=== PATIENT | male | born 1965 | race Caucasian/White ===

== ENCOUNTER 2020-02-28 10:03 | Inpatient (IN) | payer MEDICAID ==
[2020-02-28] MEDS ORDERED: LORazepam 2 MG/ML SDV IVPUSH ONE (10:08)
[2020-02-28] MEDS ORDERED: Ondansetron 4 MG/2 ML SDV IVPUSH ONE (10:08)
[2020-02-28] MEDS ORDERED: Sodium Chloride 0.9% 2.5 ML Syringe FLUSH PRN (10:08)
[2020-02-28] MEDS ORDERED: Lactated Ringers 1,000 ML IV ONE (10:08)
[2020-02-28] MEDS ORDERED: Sodium Chloride 0.9% 10 ML Syringe FLUSH PRN (10:08)
--- NOTE | 2020-02-28 10:08 | EDM.PDOC ---
ED HPI GENERAL MEDICAL PROBLEM - General Stated Complaint: VOMITING/DETOX Time Seen by Provider: 02/28/20 10:05 Source of Information: Reports: EMS History Limitations: Reports: Altered Mental Status - History of Present Illness INITIAL COMMENTS - FREE TEXT/NARRATIVE: 55-year-old male was brought in by ambulance for nausea and vomiting last night. He drinks alcohol regularly and his last alcohol consumption was 5 days ago. He notes he is seeing spots. He denies auditory hallucination, chest pain, shortness of breath, headache, abdominal pain, back pain. ROS: A 10-point review of systems, other than pertinent positives and negatives as stated per HPI, is otherwise negative PHYSICAL EXAM General: AOx4, GCS = 15, No distress, agitated, tremulous HEENT: dry mucous membrane Skin: clammy Neck: supple, no meningismus, no Kernig or Brudzinski Cardiac: S1S2 tachycardia Respiratory: CTAB, no crackles or rales, no wheezing Abdomen: Soft, nontender, no rebound or guarding, nondistended, no pulsatile mass. Back: nontender Musculoskeletal: NVI distally, no deformity Neuro: tremulous - Related Data Allergies Allergy/AdvReac Type Severity Reaction Status Date / Time Unable to Assess Allergy Unverified 02/28/20 10:08 Home Meds: Home Meds . [Unable to Verify Home Med List] 02/28/20 [History] ED ROS GENERAL - Review of Systems Review Of Systems: Comprehensive ROS is negative, except as noted in HPI. ED EXAM, GENERAL - Physical Exam Exam: See Below (see dictation) EKG INTERPRETATION EKG Interpretation Comments: 105 Bpm, sinus tach, normal QRS interval, no STEMI. EKG and rhythm strip interpreted by me at 1018 Course - Vital Signs Last Recorded V/S: Last Vital Signs Temp 96.1 F L 02/28/20 10:08 Pulse 100 02/28/20 11:45 Resp 17 02/28/20 11:45 BP 103/67 02/28/20 11:45 Pulse Ox 98 02/28/20 11:45 - Orders/Labs/Meds Orders: Active Orders 24 hr Category Date Time Status EKG Documentation Completion [RC] STAT Care 02/28/20 10:09 Active CULTURE BLOOD [BC] Stat Lab 02/28/20 10:33 Received CULTURE BLOOD [BC] Stat Lab 02/28/20 11:14 Received DRUG SCREEN, URINE [URCHEM] Stat Lab 02/28/20 10:08 Ordered Sodium Chloride 0.9% [Saline Flush] Med 02/28/20 10:08 Active 10 ml FLUSH ASDIRECTED PRN Sodium Chloride 0.9% [Saline Flush] Med 02/28/20 10:08 Active 2.5 ml FLUSH ASDIRECTED PRN Blood Culture x2 Reflex Set [OM.PC] Stat Oth 02/28/20 10:28 Ordered Saline Lock Insert [OM.PC] Stat Oth 02/28/20 10:08 Ordered Medication Orders Sodium Chloride (Saline Flush) 10 ml FLUSH ASDIRECTED PRN PRN Reason: Keep Vein Open Last Admin: 02/28/20 10:19 Dose: 10 ml Documented by: MICHELLE Sodium Chloride (Saline Flush) 2.5 ml FLUSH ASDIRECTED PRN PRN Reason: Keep Vein Open Last Admin: 02/28/20 10:19 Dose: 2.5 ml Documented by: MICHELLE Labs: Laboratory Tests 02/28/20 02/28/20 02/28/20 Range/Units 10:10 10:10 10:10 WBC 14.00 H (4.0-11.0) K/uL RBC 4.60 (4.50-5.90) M/uL Hgb 14.8 (13.0-17.0) g/dL Hct 41.1 (38.0-50.0) % MCV 89.3 (80.0-98.0) fL MCH 32.2 H (27.0-32.0) pg MCHC 36.0 (31.0-37.0) g/dL RDW Std Deviation 45.5 (28.0-62.0) fl RDW Coeff of Ambrosio 14 (11.0-15.0) % Plt Count 162 (150-400) K/uL MPV 8.80 (7.40-12.00) fL Neut % (Auto) 88.8 H (48.0-80.0) % Lymph % (Auto) 3.6 L (16.0-40.0) % Ashe % (Auto) 7.6 (0.0-15.0) % Eos % (Auto) 0.0 (0.0-7.0) % Baso % (Auto) 0.0 (0.0-1.5) % Neut # (Auto) 12.4 H (1.4-5.7) K/uL Lymph # (Auto) 0.5 L (0.6-2.4) K/uL Ashe # (Auto) 1.1 H (0.0-0.8) K/uL Eos # (Auto) 0.0 (0.0-0.7) K/uL Baso # (Auto) 0.0 (0.0-0.1) K/uL Nucleated RBC % 0.0 /100WBC Nucleated RBCs # 0 K/uL Lactate 2.2 H* (0.20-2.00) mmol/L Sodium 123 L (136-148) mmol/L Potassium 3.2 L (3.5-5.1) mmol/L Chloride 81 L (98-107) mmol/L Carbon Dioxide 25.1 (21.0-32.0) mmol/L BUN 7 (7.0-18.0) mg/dL Creatinine 1.0 (0.8-1.3) mg/dL Est Cr Clr Drug Dosing 79.80 mL/min Estimated GFR (MDRD) > 60.0 ml/min Glucose 151 H (74-106) mg/dL Calcium 8.8 (8.5-10.1) mg/dL Phosphorus 3.1 (2.6-4.7) mg/dL Magnesium 1.8 (1.8-2.4) mg/dL Total Bilirubin 2.3 H (0.2-1.0) mg/dL AST 119 H (15-37) IU/L ALT 162 H (14-63) IU/L Alkaline Phosphatase 145 H (46-116) U/L Creatine Kinase 205 (26-308) U/L Troponin I < 0.050 (0.000-0.056) ng/mL Total Protein 7.8 (6.4-8.2) g/dL Albumin 4.1 (3.4-5.0) g/dL Globulin 3.7 (2.6-4.0) g/dL Albumin/Globulin Ratio 1.1 (0.9-1.6) Ethyl Alcohol < 3.0 mg/dL COVID-19 (MAGALIE) (NEGATIVE) 02/28/20 Range/Units 10:30 WBC (4.0-11.0) K/uL RBC (4.50-5.90) M/uL Hgb (13.0-17.0) g/dL Hct (38.0-50.0) % MCV (80.0-98.0) fL MCH (27.0-32.0) pg MCHC (31.0-37.0) g/dL RDW Std Deviation (28.0-62.0) fl RDW Coeff of Ambrosio (11.0-15.0) % Plt Count (150-400) K/uL MPV (7.40-12.00) fL Neut % (Auto) (48.0-80.0) % Lymph % (Auto) (16.0-40.0) % Ashe % (Auto) (0.0-15.0) % Eos % (Auto) (0.0-7.0) % Baso % (Auto) (0.0-1.5) % Neut # (Auto) (1.4-5.7) K/uL Lymph # (Auto) (0.6-2.4) K/uL Ashe # (Auto) (0.0-0.8) K/uL Eos # (Auto) (0.0-0.7) K/uL Baso # (Auto) (0.0-0.1) K/uL Nucleated RBC % /100WBC Nucleated RBCs # K/uL Lactate (0.20-2.00) mmol/L Sodium (136-148) mmol/L Potassium (3.5-5.1) mmol/L Chloride (98-107) mmol/L Carbon Dioxide (21.0-32.0) mmol/L BUN (7.0-18.0) mg/dL Creatinine (0.8-1.3) mg/dL Est Cr Clr Drug Dosing mL/min Estimated GFR (MDRD) ml/min Glucose (74-106) mg/dL Calcium (8.5-10.1) mg/dL Phosphorus (2.6-4.7) mg/dL Magnesium (1.8-2.4) mg/dL Total Bilirubin (0.2-1.0) mg/dL AST (15-37) IU/L ALT (14-63) IU/L Alkaline Phosphatase (46-116) U/L Creatine Kinase (26-308) U/L Troponin I (0.000-0.056) ng/mL Total Protein (6.4-8.2) g/dL Albumin (3.4-5.0) g/dL Globulin (2.6-4.0) g/dL Albumin/Globulin Ratio (0.9-1.6) Ethyl Alcohol mg/dL COVID-19 (MAGALIE) NEGATIVE (NEGATIVE) Meds: Medications Generic Name Dose Route Start Last Admin Trade Name Will PRN Reason Stop Dose Admin Sodium Chloride 10 ml 02/28/20 10:08 02/28/20 10:19 Saline Flush FLUSH 10 ml ASDIRECTED PRN Administration Keep Vein Open Sodium Chloride 2.5 ml 02/28/20 10:08 02/28/20 10:19 Saline Flush FLUSH 2.5 ml ASDIRECTED PRN Administration Keep Vein Open Discontinued Medications Generic Name Dose Route Start Last Admin Trade Name Willianq PRN Reason Stop Dose Admin Lactated Ringer's 1,000 mls @ 999 mls/hr 02/28/20 10:08 02/28/20 10:17 Ringers, Lactated IV 02/28/20 11:08 999 mls/hr .BOLUS ONE Administration Multivitamins/Minerals 10 ml/ 1,011.2 mls @ 999 mls/hr 02/28/20 10:10 02/28/20 10:36 Thiamine HCl 100 mg/ Folic IV 02/28/20 11:10 999 mls/hr Acid 1 mg/ Sodium Chloride ONETIME ONE Administration Lorazepam 2 mg 02/28/20 10:08 02/28/20 10:18 Ativan IVPUSH 02/28/20 10:09 2 mg ONETIME ONE Administration Ondansetron HCl 4 mg 02/28/20 10:08 02/28/20 10:20 Zofran IVPUSH 02/28/20 10:09 4 mg ONETIME ONE Administration - Re-Assessments/Exams Free Text/Narrative Re-Assessment/Exam: 02/28/20 11:[address] Hood, who agrees to admit. The hospitalist's documentation supersedes all other documentation on this patient with regard to any conflicts or discrepancies from this point forward. Any emergency conditions have been treated to the ability of the ED prior to admission. Departure - Departure Time of Disposition: 11:47 Disposition: Admitted As Inpatient 65 Condition: Good Clinical Impression: Alcohol withdrawal delirium, Hyponatremia - Discharge Information *PRESCRIPTION DRUG MONITORING PROGRAM REVIEWED*: Not Applicable *COPY OF PRESCRIPTION DRUG MONITORING REPORT IN PATIENT JHONNY: Not Applicable Critical Care Note - Critical Care Note Total Time (mins): 40 Comments: Critical Care: The high probability of sudden, clinically significant deterioration in the patient's condition required the highest level of my preparedness to intervene urgently. The services I provided to this patient were to treat and/or prevent clinically significant deterioration. Services included the following: chart data review, reviewing nursing notes and/or old charts, documentation time, sales consultant residential manager collaboration regarding findings and treatment options, medication orders and management, direct patient care, vital sign assessments and ordering, interpreting and reviewing diagnostic studies/lab tests. Aggregate critical care time includes only time during which I was engaged in work directly related to the patient's care, as described above, whether at the bedside or elsewhere in the Emergency Department. It did not include time spent performing other reported procedures or the services of residents, students, nurses or physician assistants. Frequent interventions and/or frequent repeat evaluations were required as well as counseling and coordination of care regarding prognosis, treatments, and discussions with patient, staff and consultants. Critical Care (excluding other procedures): 40 minutes Sepsis Event Note (ED) - Focused Exam Vital Signs: Vital Signs Temp Pulse Resp BP Pulse Ox 02/28/20 11:45 100 17 103/67 98 02/28/20 10:08 96.1 F L 101 H 17 98 - My Orders Last 24 Hours: My Active Orders 02/28/20 10:08 DRUG SCREEN, URINE [URCHEM] Stat Sodium Chloride 0.9% [Saline Flush] 10 ml FLUSH ASDIRECTED PRN Sodium Chloride 0.9% [Saline Flush] 2.5 ml FLUSH ASDIRECTED PRN Saline Lock Insert [OM.PC] Stat 02/28/20 10:09 EKG Documentation Completion [RC] STAT 02/28/20 10:28 Blood Culture x2 Reflex Set [OM.PC] Stat 02/28/20 10:33 CULTURE BLOOD [BC] Stat 02/28/20 11:14 CULTURE BLOOD [BC] Stat - Assessment/Plan Last 24 Hours: My Active Orders 02/28/20 10:08 DRUG SCREEN, URINE [URCHEM] Stat Sodium Chloride 0.9% [Saline Flush] 10 ml FLUSH ASDIRECTED PRN Sodium Chloride 0.9% [Saline Flush] 2.5 ml FLUSH ASDIRECTED PRN Saline Lock Insert [OM.PC] Stat 02/28/20 10:09 EKG Documentation Completion [RC] STAT 02/28/20 10:28 Blood Culture x2 Reflex Set [OM.PC] Stat 02/28/20 10:33 CULTURE BLOOD [BC] Stat 02/28/20 11:14 CULTURE BLOOD [BC] Stat
[2020-02-28] MEDS ORDERED: MVI, Adult with Vitamin K 10 ML, Thiamine 100 MG, Folic Acid 1 MG in Sodium Chloride 0.... IV ONE ×4 (10:10)
[2020-02-28 10:46] LABS: BLOOD UREA NITROGEN,BUN 7 mg/dL (7.0-18.0); CARBON DIOXIDE,CO2 25.1 mmol/L (21.0-32.0); CHLORIDE,CL 81 mmol/L (98-107); GLUCOSE RANDOM 151 mg/dL (74-106); POTASSIUM,K 3.2 mmol/L (3.5-5.1); SODIUM,NA 123 mmol/L (136-148)
[2020-02-28] MEDS ORDERED: Ondansetron 4 MG/2 ML SDV IVPUSH PRN ×2 (14:22→14:35)
[2020-02-28] MEDS ORDERED: LORazepam 2 MG/ML SDV IVPUSH PRN (14:22)
[2020-02-28] MEDS ORDERED: Sodium Chloride 0.9% 1,000 ML IV SCH (14:24)
--- NOTE | 2020-02-28 14:27 | CR ---
Chest: Portable view of the chest was obtained. Comparison: No prior chest imaging is available. Heart size and mediastinum are normal. Lungs are clear with no acute parenchymal change. Bony structures are grossly intact. Impression: 1. Nothing acute seen on portable chest x-ray. Diagnostic code #1 This report was dictated in MDT
[2020-02-28] MEDS ORDERED: Potassium Chloride 20 MEQ Tab.ER PO ONE (14:32)
--- NOTE | 2020-02-28 14:41 | PCM.HP.2 ---
H&P History of Present Illness - General Date of Service: 02/28/20 Admit Problem/Dx: Admission Diagnosis/Problem Admission Diagnosis/Problem Alcohol withdrawal delirium - History of Present Illness Initial Comments - Free Text/Narative: 55 yo male with pmh of alcohol abuse who presents with one day history of nausea and vomiting. PAtient reports he has not been able to keep anything down. He reports drinking two 40s a day. Last drink was five days ago. In the ED he was noted to confused and tremulous. He was given ativan with improvement in his symptoms. Patient denies any fevers, chills, cough, shortness of breath, diarrhea, or abdominal pain. - Related Data Allergies/Adverse Reactions: Allergies Allergy/AdvReac Type Severity Reaction Status Date / Time Unable to Assess Allergy Unverified 02/28/20 10:08 Home Medications: Home Meds . [Unable to Verify Home Med List] 02/28/20 [History] Past Medical History HEENT History: Reports: Other (See Below) Other HEENT History: unable to assess Cardiovascular History: Reports: Other (See Below) Other Cardiovascular History: unable to assess Respiratory History: Reports: Other (See Below) Other Respiratory History: unable to assess Gastrointestinal History: Reports: Other (See Below) Other Gastrointestinal History: unable to assess Genitourinary History: Reports: Other (See Below) Other Genitourinary History: unable to assess Musculoskeletal History: Reports: Other (See Below) Other Musculoskeletal History: unable to assess Neurological History: Reports: Other (See Below) Other Neuro History: unable to assess Psychiatric History: Reports: Other (See Below) Other Psychiatric History: unable to assess Endocrine/Metabolic History: Reports: Other (See Below) Other Endocrine/Metabolic History: unable to assess Hematologic History: Reports: Other (See Below) Other Hematologic History: unable to assess Immunologic History: Reports: Other (See Below) Other Immunologic History: unable to assess Oncologic (Cancer) History: Reports: Other (See Below) Other Oncologic History: unable to assess Dermatologic History: Reports: Other (See Below) Other Dermatologic History: unable to assess - Infectious Disease History Infectious Disease History: Reports: Other (See Below) Other Infectious Disease History: unable to assess - Past Surgical History Head Surgeries/Procedures: Reports: Other (See Below) HEENT Surgical History: Reports: Other (See Below) Other HEENT Surgeries/Procedures: unable to assess Cardiovascular Surgical History: Reports: Other (See Below) Other Cardiovascular Surgeries/Procedures: unable to assess Respiratory Surgical History: Reports: Other (See Below) Other Respiratory Surgeries/Procedures: unable to assess GI Surgical History: Reports: Other (See Below) Other GI Surgeries/Procedures: unable to assess Male Surgical History: Reports: Other (See Below) Other Male Surgeries/Procedures: unable to assess Endocrine Surgical History: Reports: Other (See Below) Other Endocrine Surgeries/Procedures: unable to assess Neurological Surgical History: Reports: Other (See Below) Other Neurological Surgeries/Procedures: unable to assess Musculoskeletal Surgical History: Reports: Other (See Below) Other Musculoskeletal Surgeries/Procedures:: unable to assess Oncologic Surgical History: Reports: Other (See Below) Other Oncologic Surgeries/Procedures: unable to assess Dermatological Surgical History: Reports: Other (See Below) Social & Family History - Family History Family Medical History: Unobtainable - Tobacco Use Smoking Status *Q: Unknown Ever Smoked - Caffeine Use Caffeine Use Comment: unable to assess H&P Review of Systems - Review of Systems: Review Of Systems: Comprehensive ROS is negative, except as noted in HPI. Exam - Exam Exam: See Below - Vital Signs Vital Signs: Last Vital Signs Temp 35.6 C L 02/28/20 10:08 Pulse 105 H 02/28/20 12:58 Resp 17 02/28/20 12:58 BP 135/85 02/28/20 12:58 Pulse Ox 96 02/28/20 12:58 Weight: 72.575 kg - Exam General: Alert, Cooperative HEENT: Mucosa Moist & Kaser Cardiovascular: Regular Rate, Regular Rhythm GI/Abdominal Exam: Normal Bowel Sounds, Soft, Non-Tender Extremities: Normal Inspection, Non-Tender, No Pedal Edema Skin: Warm, Dry, Intact Neurological: Cranial Nerves Intact, Normal Speech. No: Focal Deficit - Patient Data Lab Results Last 24 hrs: Laboratory Results - last 24 hr 02/28/20 02/28/20 02/28/20 Range/Units 10:10 10:10 10:10 WBC 14.00 H (4.0-11.0) K/uL RBC 4.60 (4.50-5.90) M/uL Hgb 14.8 (13.0-17.0) g/dL Hct 41.1 (38.0-50.0) % MCV 89.3 (80.0-98.0) fL MCH 32.2 H (27.0-32.0) pg MCHC 36.0 (31.0-37.0) g/dL RDW Std Deviation 45.5 (28.0-62.0) fl RDW Coeff of Ambrosio 14 (11.0-15.0) % Plt Count 162 (150-400) K/uL MPV 8.80 (7.40-12.00) fL Neut % (Auto) 88.8 H (48.0-80.0) % Lymph % (Auto) 3.6 L (16.0-40.0) % Foster % (Auto) 7.6 (0.0-15.0) % Eos % (Auto) 0.0 (0.0-7.0) % Baso % (Auto) 0.0 (0.0-1.5) % Neut # (Auto) 12.4 H (1.4-5.7) K/uL Lymph # (Auto) 0.5 L (0.6-2.4) K/uL Foster # (Auto) 1.1 H (0.0-0.8) K/uL Eos # (Auto) 0.0 (0.0-0.7) K/uL Baso # (Auto) 0.0 (0.0-0.1) K/uL Nucleated RBC % 0.0 /100WBC Nucleated RBCs # 0 K/uL Lactate 2.2 H* (0.20-2.00) mmol/L Sodium 123 L (136-148) mmol/L Potassium 3.2 L (3.5-5.1) mmol/L Chloride 81 L (98-107) mmol/L Carbon Dioxide 25.1 (21.0-32.0) mmol/L BUN 7 (7.0-18.0) mg/dL Creatinine 1.0 (0.8-1.3) mg/dL Est Cr Clr Drug Dosing 79.80 mL/min Estimated GFR (MDRD) > 60.0 ml/min Glucose 151 H (74-106) mg/dL Calcium 8.8 (8.5-10.1) mg/dL Phosphorus 3.1 (2.6-4.7) mg/dL Magnesium 1.8 (1.8-2.4) mg/dL Total Bilirubin 2.3 H (0.2-1.0) mg/dL AST 119 H (15-37) IU/L ALT 162 H (14-63) IU/L Alkaline Phosphatase 145 H (46-116) U/L Creatine Kinase 205 (26-308) U/L Troponin I < 0.050 (0.000-0.056) ng/mL Total Protein 7.8 (6.4-8.2) g/dL Albumin 4.1 (3.4-5.0) g/dL Globulin 3.7 (2.6-4.0) g/dL Albumin/Globulin Ratio 1.1 (0.9-1.6) Urine Color Urine Appearance Urine pH (5.0-8.0) Ur Specific [place] (1.001-1.035) Urine Protein (NEGATIVE) mg/dL Urine Glucose (UA) (NEGATIVE) mg/dL Urine Ketones (NEGATIVE) mg/dL Urine Occult Blood (NEGATIVE) Urine Nitrite (NEGATIVE) Urine Bilirubin (NEGATIVE) Urine Urobilinogen (<2.0) EU/dL Ur Leukocyte Esterase (NEGATIVE) Urine Opiates Screen (NEGATIVE) Ur Oxycodone Screen (NEGATIVE) Urine Methadone Screen (NEGATIVE) Ur Barbiturates Screen (NEGATIVE) Ur Phencyclidine Scrn (NEGATIVE) Ur Amphetamine Screen (NEGATIVE) U Methamphetamines Scrn (NEGATIVE) U Benzodiazepines Scrn (NEGATIVE) U Cocaine Metab Screen (NEGATIVE) U Marijuana (THC) Screen (NEGATIVE) Ethyl Alcohol < 3.0 mg/dL COVID-19 (MAGALIE) (NEGATIVE) 02/28/20 02/28/20 02/28/20 Range/Units 10:30 12:53 12:53 WBC (4.0-11.0) K/uL RBC (4.50-5.90) M/uL Hgb (13.0-17.0) g/dL Hct (38.0-50.0) % MCV (80.0-98.0) fL MCH (27.0-32.0) pg MCHC (31.0-37.0) g/dL RDW Std Deviation (28.0-62.0) fl RDW Coeff of Ambrosio (11.0-15.0) % Plt Count (150-400) K/uL MPV (7.40-12.00) fL Neut % (Auto) (48.0-80.0) % Lymph % (Auto) (16.0-40.0) % Foster % (Auto) (0.0-15.0) % Eos % (Auto) (0.0-7.0) % Baso % (Auto) (0.0-1.5) % Neut # (Auto) (1.4-5.7) K/uL Lymph # (Auto) (0.6-2.4) K/uL Foster # (Auto) (0.0-0.8) K/uL Eos # (Auto) (0.0-0.7) K/uL Baso # (Auto) (0.0-0.1) K/uL Nucleated RBC % /100WBC Nucleated RBCs # K/uL Lactate (0.20-2.00) mmol/L Sodium (136-148) mmol/L Potassium (3.5-5.1) mmol/L Chloride (98-107) mmol/L Carbon Dioxide (21.0-32.0) mmol/L BUN (7.0-18.0) mg/dL Creatinine (0.8-1.3) mg/dL Est Cr Clr Drug Dosing mL/min Estimated GFR (MDRD) ml/min Glucose (74-106) mg/dL Calcium (8.5-10.1) mg/dL Phosphorus (2.6-4.7) mg/dL Magnesium (1.8-2.4) mg/dL Total Bilirubin (0.2-1.0) mg/dL AST (15-37) IU/L ALT (14-63) IU/L Alkaline Phosphatase (46-116) U/L Creatine Kinase (26-308) U/L Troponin I (0.000-0.056) ng/mL Total Protein (6.4-8.2) g/dL Albumin (3.4-5.0) g/dL Globulin (2.6-4.0) g/dL Albumin/Globulin Ratio (0.9-1.6) Urine Color YELLOW Urine Appearance SLT CLOUDY Urine pH 7.5 (5.0-8.0) Ur Specific [place] 1.010 (1.001-1.035) Urine Protein NEGATIVE (NEGATIVE) mg/dL Urine Glucose (UA) NEGATIVE (NEGATIVE) mg/dL Urine Ketones 15 H (NEGATIVE) mg/dL Urine Occult Blood NEGATIVE (NEGATIVE) Urine Nitrite NEGATIVE (NEGATIVE) Urine Bilirubin NEGATIVE (NEGATIVE) Urine Urobilinogen 2.0 H (<2.0) EU/dL Ur Leukocyte Esterase NEGATIVE (NEGATIVE) Urine Opiates Screen NEGATIVE (NEGATIVE) Ur Oxycodone Screen NEGATIVE (NEGATIVE) Urine Methadone Screen NEGATIVE (NEGATIVE) Ur Barbiturates Screen NEGATIVE (NEGATIVE) Ur Phencyclidine Scrn NEGATIVE (NEGATIVE) Ur Amphetamine Screen NEGATIVE (NEGATIVE) U Methamphetamines Scrn NEGATIVE (NEGATIVE) U Benzodiazepines Scrn NEGATIVE (NEGATIVE) U Cocaine Metab Screen NEGATIVE (NEGATIVE) U Marijuana (THC) Screen NEGATIVE (NEGATIVE) Ethyl Alcohol mg/dL COVID-19 (MAGALIE) NEGATIVE (NEGATIVE) 02/28/20 Range/Units 14:14 WBC (4.0-11.0) K/uL RBC (4.50-5.90) M/uL Hgb (13.0-17.0) g/dL Hct (38.0-50.0) % MCV (80.0-98.0) fL MCH (27.0-32.0) pg MCHC (31.0-37.0) g/dL RDW Std Deviation (28.0-62.0) fl RDW Coeff of Ambrosio (11.0-15.0) % Plt Count (150-400) K/uL MPV (7.40-12.00) fL Neut % (Auto) (48.0-80.0) % Lymph % (Auto) (16.0-40.0) % Foster % (Auto) (0.0-15.0) % Eos % (Auto) (0.0-7.0) % Baso % (Auto) (0.0-1.5) % Neut # (Auto) (1.4-5.7) K/uL Lymph # (Auto) (0.6-2.4) K/uL Foster # (Auto) (0.0-0.8) K/uL Eos # (Auto) (0.0-0.7) K/uL Baso # (Auto) (0.0-0.1) K/uL Nucleated RBC % /100WBC Nucleated RBCs # K/uL Lactate 0.9 (0.20-2.00) mmol/L Sodium (136-148) mmol/L Potassium (3.5-5.1) mmol/L Chloride (98-107) mmol/L Carbon Dioxide (21.0-32.0) mmol/L BUN (7.0-18.0) mg/dL Creatinine (0.8-1.3) mg/dL Est Cr Clr Drug Dosing mL/min Estimated GFR (MDRD) ml/min Glucose (74-106) mg/dL Calcium (8.5-10.1) mg/dL Phosphorus (2.6-4.7) mg/dL Magnesium (1.8-2.4) mg/dL Total Bilirubin (0.2-1.0) mg/dL AST (15-37) IU/L ALT (14-63) IU/L Alkaline Phosphatase (46-116) U/L Creatine Kinase (26-308) U/L Troponin I (0.000-0.056) ng/mL Total Protein (6.4-8.2) g/dL Albumin (3.4-5.0) g/dL Globulin (2.6-4.0) g/dL Albumin/Globulin Ratio (0.9-1.6) Urine Color Urine Appearance Urine pH (5.0-8.0) Ur Specific [place] (1.001-1.035) Urine Protein (NEGATIVE) mg/dL Urine Glucose (UA) (NEGATIVE) mg/dL Urine Ketones (NEGATIVE) mg/dL Urine Occult Blood (NEGATIVE) Urine Nitrite (NEGATIVE) Urine Bilirubin (NEGATIVE) Urine Urobilinogen (<2.0) EU/dL Ur Leukocyte Esterase (NEGATIVE) Urine Opiates Screen (NEGATIVE) Ur Oxycodone Screen (NEGATIVE) Urine Methadone Screen (NEGATIVE) Ur Barbiturates Screen (NEGATIVE) Ur Phencyclidine Scrn (NEGATIVE) Ur Amphetamine Screen (NEGATIVE) U Methamphetamines Scrn (NEGATIVE) U Benzodiazepines Scrn (NEGATIVE) U Cocaine Metab Screen (NEGATIVE) U Marijuana (THC) Screen (NEGATIVE) Ethyl Alcohol mg/dL COVID-19 (MAGALIE) (NEGATIVE) Result Diagrams: 02/28/20 10:10 02/28/20 10:10 Sepsis Event Note - Evaluation Sepsis Screening Result: No Definite Risk - Focused Exam Vital Signs: Vital Signs Temp Pulse Resp BP Pulse Ox 02/28/20 12:58 105 H 17 135/85 96 02/28/20 11:45 100 17 103/67 98 02/28/20 10:08 35.6 C L 101 H 17 98 Date Exam was Performed: 02/28/20 Time Exam was Performed: 14:36 Problem List Initiated/Reviewed/Updated: Yes Orders Last 24hrs: Active Orders 24 hr Category Date Time Status Admission Status [Patient Status] [ADT] Stat ADT 02/28/20 11:48 Active Antiembolic Devices [RC] PER UNIT ROUTINE Care 02/28/20 14:35 Ordered Cardiac Monitoring [RC] CONTINUOUS Care 02/28/20 14:23 Active EKG Documentation Completion [RC] STAT Care 02/28/20 10:09 Active Intake and Output [RC] QSHIFT Care 02/28/20 14:23 Active Oxygen Therapy [RC] PRN Care 02/28/20 14:23 Active Oxygen Therapy [RC] PRN Care 02/28/20 14:35 Ordered Up With Assistance [RC] ASDIRECTED Care 02/28/20 14:22 Active VTE/DVT Education [RC] PER UNIT ROUTINE Care 02/28/20 14:23 Active VTE/DVT Education [RC] PER UNIT ROUTINE Care 02/28/20 14:35 Ordered Vital Signs [RC] Q1HR Care 02/28/20 14:23 Active Vital Signs [RC] Q4H Care 02/28/20 14:35 Ordered Regular Diet [DIET] Diet 02/28/20 Lunch Active Abdomen Ltd [US] Routine Exams 02/28/20 14:27 Ordered BMP [BASIC METABOLIC PANEL,BMP] [CHEM] Q4H Lab 02/28/20 18:00 Ordered BMP [BASIC METABOLIC PANEL,BMP] [CHEM] Q4H Lab 02/28/20 22:00 Ordered BMP [BASIC METABOLIC PANEL,BMP] [CHEM] Q4H Lab 02/29/20 02:00 Ordered BMP [BASIC METABOLIC PANEL,BMP] [CHEM] Routine Lab 02/28/20 14:33 Ordered CBC WITH AUTO DIFF [HEME] AM Lab 02/29/20 05:11 Ordered COMPREHENSIVE METABOLIC PN,CMP [CHEM] AM Lab 02/29/20 05:11 Ordered CULTURE BLOOD [BC] Stat Lab 02/28/20 10:33 Received CULTURE BLOOD [BC] Stat Lab 02/28/20 11:14 Received HEPATITIS PANEL (4) [REF] AM Lab 02/29/20 05:11 Ordered INR,PT,PROTHROMBIN TIME [COAG] AM Lab 02/29/20 05:11 Ordered Folic Acid Med 02/29/20 09:00 Ordered 1 mg SUBCUT DAILY LORazepam [Ativan] Med 02/28/20 14:22 Ordered See Protocol IVPUSH Q2H PRN Ondansetron [Zofran] Med 02/28/20 14:22 Ordered 4 mg IVPUSH Q4H PRN Ondansetron [Zofran] Med 02/28/20 14:35 Ordered 4 mg IVPUSH Q4H PRN Potassium Chloride [Klor-Con M20] Med 02/28/20 14:32 Once 40 meq PO ONETIME ONE Sodium Chloride 0.9% [Normal Saline] 1,000 ml Med 02/28/20 14:24 Ordered IV Q8HR Sodium Chloride 0.9% [Saline Flush] Med 02/28/20 10:08 Active 10 ml FLUSH ASDIRECTED PRN Sodium Chloride 0.9% [Saline Flush] Med 02/28/20 10:08 Active 2.5 ml FLUSH ASDIRECTED PRN Thiamine [Vitamin B-1] 100 mg Med 02/29/20 09:00 Ordered Sodium Chloride 0.9% [Normal Saline] 100 ml IV DAILY Blood Culture x2 Reflex Set [OM.PC] Stat Ot 02/28/20 10:28 Ordered Saline Lock Insert [OM.PC] Stat Ot 02/28/20 10:08 Ordered Sequential Compression Device [OM.PC] Per Unit Routine Ot 02/28/20 14:35 Ordered Resuscitation Status Routine Resus Stat 02/28/20 14:22 Ordered Medication Orders Folic Acid (Folic Acid) 1 mg SUBCUT DAILY BRIGIDA Sodium Chloride (Normal Saline) 1,000 mls @ 125 mls/hr IV Q8HR BRIGIDA Thiamine HCl 100 mg/ Sodium (Chloride) 101 mls @ 202 mls/hr IV DAILY BRIGIDA Lorazepam (Ativan) 0 mg IVPUSH Q2H PRN; Protocol PRN Reason: CIWAA Ondansetron HCl (Zofran) 4 mg IVPUSH Q4H PRN PRN Reason: Nausea Potassium Chloride (Klor-Con M20) 40 meq PO ONETIME ONE Stop: 02/28/20 14:33 Sodium Chloride (Saline Flush) 10 ml FLUSH ASDIRECTED PRN PRN Reason: Keep Vein Open Last Admin: 02/28/20 10:19 Dose: 10 ml Documented by: MICHELLE Sodium Chloride (Saline Flush) 2.5 ml FLUSH ASDIRECTED PRN PRN Reason: Keep Vein Open Last Admin: 02/28/20 10:19 Dose: 2.5 ml Documented by: MICHELLE Assessment/Plan Comment:: 55 yo male admitted for ETOH withdrawal and hyponatremia. Alcohol withdrawal: Will place on CIWAA protocol with ativan prn, thiamin and folic acid Hyponatremia: patient received two liters of fluid in ED, will trend sodium Leukocytosis and elevated lactic: likely due to dehydration. Lactic acid has normalized, does not appear septic. Mild transaminitis: likely due to ETOH abuse, hepatitis panel pending and U/S ordered.
[2020-02-28 15:15] LABS: BLOOD UREA NITROGEN,BUN 7 mg/dL (7.0-18.0); CARBON DIOXIDE,CO2 27.1 mmol/L (21.0-32.0); CHLORIDE,CL 89 mmol/L (98-107); GLUCOSE RANDOM 109 mg/dL (74-106); SODIUM,NA 129 mmol/L (136-148)
[2020-02-28] MEDS: Benzocaine/Cetylpyridinium/Menthol Lozenge MUCMEM PRN ×2 (17:27→22:34)
[2020-02-28] MEDS: Pantoprazole 40 MG in Sodium Chloride 0.9% 10 ML IV SCH (17:27)
[2020-02-28 19:00] LABS: BLOOD UREA NITROGEN,BUN 8 mg/dL (7.0-18.0); CARBON DIOXIDE,CO2 27.3 mmol/L (21.0-32.0); CHLORIDE,CL 93 mmol/L (98-107); GLUCOSE RANDOM 138 mg/dL (74-106); POTASSIUM,K 3.2 mmol/L (3.5-5.1); SODIUM,NA 129 mmol/L (136-148)
[2020-02-28 22:52] LABS: BLOOD UREA NITROGEN,BUN 9 mg/dL (7.0-18.0); CARBON DIOXIDE,CO2 27.9 mmol/L (21.0-32.0); CHLORIDE,CL 96 mmol/L (98-107); GLUCOSE RANDOM 106 mg/dL (74-106); POTASSIUM,K 3.3 mmol/L (3.5-5.1); SODIUM,NA 132 mmol/L (136-148)
[2020-02-29] MEDS: Benzocaine/Cetylpyridinium/Menthol Lozenge MUCMEM PRN ×4 (00:43→22:58)
--- NOTE | 2020-02-29 01:46 | PN ---
THC Physician - Brief Progress [email or web address]/24/2020 01:37[facility] Tamanna willson, [place] - EDINN (YAMILETH) - MWDahiana Timbo ALEJANDRE of Service 02/29/2020 01:37HPI/Events of Not e EICU Admit Note55 y old male with history of alcohol abuse with one day of nause and vomiting . Co nfusion and tremors in ED, Ativan helped and ast drink being 5 days prior likely EtOH withdrawal. His tory from chart and RN.On video pt asleep , stable vitalsLabs K 3.3A/RecMonitor lytesCIWA and ativan prnNa low monitorMIld transaminitis- check discriminant function once INR done this AM and iCa alsoIf nausea not better check lipaseUSG RUQ plannedRefused SCD; pt ambulating per RND/w RNInterventions Julia thompson-Change in mental status - evaluation and management, Electrolyte abnormality - evaluation and man agement, Other: alcohol withdrawal
[2020-02-29 02:46] LABS: BLOOD UREA NITROGEN,BUN 9 mg/dL (7.0-18.0); CARBON DIOXIDE,CO2 29.6 mmol/L (21.0-32.0); CHLORIDE,CL 99 mmol/L (98-107); GLUCOSE RANDOM 117 mg/dL (74-106); POTASSIUM,K 3.6 mmol/L (3.5-5.1); SODIUM,NA 135 mmol/L (136-148)
[2020-02-29 06:35] LABS: BLOOD UREA NITROGEN,BUN 11 mg/dL (7.0-18.0); CARBON DIOXIDE,CO2 27.1 mmol/L (21.0-32.0); CHLORIDE,CL 99 mmol/L (98-107); GLUCOSE RANDOM 93 mg/dL (74-106); POTASSIUM,K 3.5 mmol/L (3.5-5.1); SODIUM,NA 136 mmol/L (136-148)
[2020-02-29] MEDS ORDERED: Thiamine 100 MG in Sodium Chloride 0.9% 100 ML IV SCH (09:00)
[2020-02-29] MEDS ORDERED: Folic Acid 50 MG/10 ML MDV SUBCUT SCH (09:00)
--- NOTE | 2020-02-29 10:20 | US ---
Limited abdominal ultrasound: Multiple real-time images of the upper right abdomen were obtained. Comparison: No prior abdominal imaging is available. Liver is echogenic as compared to the kidney. No focal abnormality is appreciated within the liver. Gallbladder contains no shadowing gallstones. No gallbladder wall thickening or biliary duct dilatation is seen. Aorta shows no aneurysm. Right kidney shows no hydronephrosis or mass. Right kidney has a length of 9.7 cm. Pancreas is poorly seen. Visualized portions of the pancreas shows no discrete abnormality. Impression: 1. Probable fatty infiltration within the liver. 2. Poorly seen pancreas. 3. No additional abnormality is appreciated on right upper quadrant abdominal ultrasound. Diagnostic code #2 This report was dictated in MDT
--- NOTE | 2020-02-29 11:21 | PCM.PN ---
- General Info Date of Service: 02/29/20 Admission Dx/Problem (Free Text): Admission Diagnosis/Problem Admission Diagnosis/Problem Alcohol withdrawal delirium Subjective Update: Upset with [email or web address] this morning. Asking about local recourses for homeless. Denies chest pain or SOB. No nausea. reports throat is sore. cepacol is helping. still feels tremulous. No hallucinating - Review of Systems General: Reports: No Symptoms. Denies: Weakness, Fatigue, Malaise HEENT: Reports: Sore Throat Pulmonary: Reports: No Symptoms. Denies: Shortness of Breath Cardiovascular: Reports: No Symptoms. Denies: Chest Pain Gastrointestinal: Reports: No Symptoms. Denies: Abdominal Pain, Nausea, Vomiting Genitourinary: Reports: No Symptoms Musculoskeletal: Reports: No Symptoms Neurological: Reports: Tremors Psychiatric: Reports: No Symptoms - Patient Data Vitals - Most Recent: Last Vital Signs Temp 98.2 F 02/29/20 04:00 Pulse 105 H 02/28/20 12:58 Resp 14 02/29/20 10:00 BP 136/61 02/29/20 10:00 Pulse Ox 92 L 02/29/20 10:00 Weight - Most Recent: 72.575 kg I&O - Last 24 Hours: Intake & Output 02/28/20 02/29/20 02/29/20 22:59 06:59 14:59 Intake Total 820 Output Total 1500 Balance -680 Lab Results Last 24 Hours: Laboratory Results - last 24 hr 02/28/20 02/28/20 02/28/20 Range/Units 12:53 12:53 14:14 WBC (4.0-11.0) K/uL RBC (4.50-5.90) M/uL Hgb (13.0-17.0) g/dL Hct (38.0-50.0) % MCV (80.0-98.0) fL MCH (27.0-32.0) pg MCHC (31.0-37.0) g/dL RDW Std Deviation (28.0-62.0) fl RDW Coeff of Ambrosio (11.0-15.0) % Plt Count (150-400) K/uL MPV (7.40-12.00) fL Neut % (Auto) (48.0-80.0) % Lymph % (Auto) (16.0-40.0) % [place] % (Auto) (0.0-15.0) % Eos % (Auto) (0.0-7.0) % Baso % (Auto) (0.0-1.5) % Neut # (Auto) (1.4-5.7) K/uL Lymph # (Auto) (0.6-2.4) K/uL [place] # (Auto) (0.0-0.8) K/uL Eos # (Auto) (0.0-0.7) K/uL Baso # (Auto) (0.0-0.1) K/uL Nucleated RBC % /100WBC Nucleated RBCs # K/uL INR Lactate 0.9 (0.20-2.00) mmol/L Sodium (136-148) mmol/L Potassium (3.5-5.1) mmol/L Chloride (98-107) mmol/L Carbon Dioxide (21.0-32.0) mmol/L BUN (7.0-18.0) mg/dL Creatinine (0.8-1.3) mg/dL Est Cr Clr Drug Dosing mL/min Estimated GFR (MDRD) ml/min Glucose (74-106) mg/dL Calcium (8.5-10.1) mg/dL Total Bilirubin (0.2-1.0) mg/dL AST (15-37) IU/L ALT (14-63) IU/L Alkaline Phosphatase (46-116) U/L Total Protein (6.4-8.2) g/dL Albumin (3.4-5.0) g/dL Globulin (2.6-4.0) g/dL Albumin/Globulin Ratio (0.9-1.6) Urine Color YELLOW Urine Appearance SLT CLOUDY Urine pH 7.5 (5.0-8.0) Ur Specific [place] 1.010 (1.001-1.035) Urine Protein NEGATIVE (NEGATIVE) mg/dL Urine Glucose (UA) NEGATIVE (NEGATIVE) mg/dL Urine Ketones 15 H (NEGATIVE) mg/dL Urine Occult Blood NEGATIVE (NEGATIVE) Urine Nitrite NEGATIVE (NEGATIVE) Urine Bilirubin NEGATIVE (NEGATIVE) Urine Urobilinogen 2.0 H (<2.0) EU/dL Ur Leukocyte Esterase NEGATIVE (NEGATIVE) Urine Opiates Screen NEGATIVE (NEGATIVE) Ur Oxycodone Screen NEGATIVE (NEGATIVE) Urine Methadone Screen NEGATIVE (NEGATIVE) Ur Barbiturates Screen NEGATIVE (NEGATIVE) Ur Phencyclidine Scrn NEGATIVE (NEGATIVE) Ur Amphetamine Screen NEGATIVE (NEGATIVE) U Methamphetamines Scrn NEGATIVE (NEGATIVE) U Benzodiazepines Scrn NEGATIVE (NEGATIVE) U Cocaine Metab Screen NEGATIVE (NEGATIVE) U Marijuana (THC) Screen NEGATIVE (NEGATIVE) 02/28/20 02/28/20 02/28/20 Range/Units 14:41 18:10 22:23 WBC (4.0-11.0) K/uL RBC (4.50-5.90) M/uL Hgb (13.0-17.0) g/dL Hct (38.0-50.0) % MCV (80.0-98.0) fL MCH (27.0-32.0) pg MCHC (31.0-37.0) g/dL RDW Std Deviation (28.0-62.0) fl RDW Coeff of Ambrosio (11.0-15.0) % Plt Count (150-400) K/uL MPV (7.40-12.00) fL Neut % (Auto) (48.0-80.0) % Lymph % (Auto) (16.0-40.0) % [place] % (Auto) (0.0-15.0) % Eos % (Auto) (0.0-7.0) % Baso % (Auto) (0.0-1.5) % Neut # (Auto) (1.4-5.7) K/uL Lymph # (Auto) (0.6-2.4) K/uL [place] # (Auto) (0.0-0.8) K/uL Eos # (Auto) (0.0-0.7) K/uL Baso # (Auto) (0.0-0.1) K/uL Nucleated RBC % /100WBC Nucleated RBCs # K/uL INR Lactate (0.20-2.00) mmol/L Sodium 129 L 129 L 132 L (136-148) mmol/L Potassium 3.0 L 3.2 L 3.3 L (3.5-5.1) mmol/L Chloride 89 L 93 L 96 L (98-107) mmol/L Carbon Dioxide 27.1 27.3 27.9 (21.0-32.0) mmol/L BUN 7 8 9 (7.0-18.0) mg/dL Creatinine 0.9 0.8 0.9 (0.8-1.3) mg/dL Est Cr Clr Drug Dosing 88.67 TNP TNP mL/min Estimated GFR (MDRD) > 60.0 > 60.0 > 60.0 ml/min Glucose 109 H 138 H 106 (74-106) mg/dL Calcium 8.6 8.3 L 8.2 L (8.5-10.1) mg/dL Total Bilirubin (0.2-1.0) mg/dL AST (15-37) IU/L ALT (14-63) IU/L Alkaline Phosphatase (46-116) U/L Total Protein (6.4-8.2) g/dL Albumin (3.4-5.0) g/dL Globulin (2.6-4.0) g/dL Albumin/Globulin Ratio (0.9-1.6) Urine Color Urine Appearance Urine pH (5.0-8.0) Ur Specific [place] (1.001-1.035) Urine Protein (NEGATIVE) mg/dL Urine Glucose (UA) (NEGATIVE) mg/dL Urine Ketones (NEGATIVE) mg/dL Urine Occult Blood (NEGATIVE) Urine Nitrite (NEGATIVE) Urine Bilirubin (NEGATIVE) Urine Urobilinogen (<2.0) EU/dL Ur Leukocyte Esterase (NEGATIVE) Urine Opiates Screen (NEGATIVE) Ur Oxycodone Screen (NEGATIVE) Urine Methadone Screen (NEGATIVE) Ur Barbiturates Screen (NEGATIVE) Ur Phencyclidine Scrn (NEGATIVE) Ur Amphetamine Screen (NEGATIVE) U Methamphetamines Scrn (NEGATIVE) U Benzodiazepines Scrn (NEGATIVE) U Cocaine Metab Screen (NEGATIVE) U Marijuana (THC) Screen (NEGATIVE) 02/29/20 02/29/20 02/29/20 Range/Units 02:23 05:15 05:15 WBC 8.60 (4.0-11.0) K/uL RBC 4.24 L (4.50-5.90) M/uL Hgb 13.5 (13.0-17.0) g/dL Hct 39.4 (38.0-50.0) % MCV 92.9 (80.0-98.0) fL MCH 31.8 (27.0-32.0) pg MCHC 34.3 (31.0-37.0) g/dL RDW Std Deviation 49.2 (28.0-62.0) fl RDW Coeff of Ambrosio 15 (11.0-15.0) % Plt Count 160 (150-400) K/uL MPV 9.10 (7.40-12.00) fL Neut % (Auto) 73.4 (48.0-80.0) % Lymph % (Auto) 13.5 L (16.0-40.0) % [place] % (Auto) 12.9 (0.0-15.0) % Eos % (Auto) 0.1 (0.0-7.0) % Baso % (Auto) 0.1 (0.0-1.5) % Neut # (Auto) 6.3 H (1.4-5.7) K/uL Lymph # (Auto) 1.2 (0.6-2.4) K/uL [place] # (Auto) 1.1 H (0.0-0.8) K/uL Eos # (Auto) 0.0 (0.0-0.7) K/uL Baso # (Auto) 0.0 (0.0-0.1) K/uL Nucleated RBC % 0.0 /100WBC Nucleated RBCs # 0 K/uL INR 0.98 Lactate (0.20-2.00) mmol/L Sodium 135 L (136-148) mmol/L Potassium 3.6 (3.5-5.1) mmol/L Chloride 99 (98-107) mmol/L Carbon Dioxide 29.6 (21.0-32.0) mmol/L BUN 9 (7.0-18.0) mg/dL Creatinine 0.9 (0.8-1.3) mg/dL Est Cr Clr Drug Dosing TNP mL/min Estimated GFR (MDRD) > 60.0 ml/min Glucose 117 H (74-106) mg/dL Calcium 8.2 L (8.5-10.1) mg/dL Total Bilirubin (0.2-1.0) mg/dL AST (15-37) IU/L ALT (14-63) IU/L Alkaline Phosphatase (46-116) U/L Total Protein (6.4-8.2) g/dL Albumin (3.4-5.0) g/dL Globulin (2.6-4.0) g/dL Albumin/Globulin Ratio (0.9-1.6) Urine Color Urine Appearance Urine pH (5.0-8.0) Ur Specific [place] (1.001-1.035) Urine Protein (NEGATIVE) mg/dL Urine Glucose (UA) (NEGATIVE) mg/dL Urine Ketones (NEGATIVE) mg/dL Urine Occult Blood (NEGATIVE) Urine Nitrite (NEGATIVE) Urine Bilirubin (NEGATIVE) Urine Urobilinogen (<2.0) EU/dL Ur Leukocyte Esterase (NEGATIVE) Urine Opiates Screen (NEGATIVE) Ur Oxycodone Screen (NEGATIVE) Urine Methadone Screen (NEGATIVE) Ur Barbiturates Screen (NEGATIVE) Ur Phencyclidine Scrn (NEGATIVE) Ur Amphetamine Screen (NEGATIVE) U Methamphetamines Scrn (NEGATIVE) U Benzodiazepines Scrn (NEGATIVE) U Cocaine Metab Screen (NEGATIVE) U Marijuana (THC) Screen (NEGATIVE) 02/29/20 Range/Units 05:15 WBC (4.0-11.0) K/uL RBC (4.50-5.90) M/uL Hgb (13.0-17.0) g/dL Hct (38.0-50.0) % MCV (80.0-98.0) fL MCH (27.0-32.0) pg MCHC (31.0-37.0) g/dL RDW Std Deviation (28.0-62.0) fl RDW Coeff of Ambrosio (11.0-15.0) % Plt Count (150-400) K/uL MPV (7.40-12.00) fL Neut % (Auto) (48.0-80.0) % Lymph % (Auto) (16.0-40.0) % [place] % (Auto) (0.0-15.0) % Eos % (Auto) (0.0-7.0) % Baso % (Auto) (0.0-1.5) % Neut # (Auto) (1.4-5.7) K/uL Lymph # (Auto) (0.6-2.4) K/uL [place] # (Auto) (0.0-0.8) K/uL Eos # (Auto) (0.0-0.7) K/uL Baso # (Auto) (0.0-0.1) K/uL Nucleated RBC % /100WBC Nucleated RBCs # K/uL INR Lactate (0.20-2.00) mmol/L Sodium 136 (136-148) mmol/L Potassium 3.5 (3.5-5.1) mmol/L Chloride 99 (98-107) mmol/L Carbon Dioxide 27.1 (21.0-32.0) mmol/L BUN 11 (7.0-18.0) mg/dL Creatinine 0.9 (0.8-1.3) mg/dL Est Cr Clr Drug Dosing TNP mL/min Estimated GFR (MDRD) > 60.0 ml/min Glucose 93 (74-106) mg/dL Calcium 8.3 L (8.5-10.1) mg/dL Total Bilirubin 1.1 H (0.2-1.0) mg/dL AST 91 H (15-37) IU/L ALT 122 H (14-63) IU/L Alkaline Phosphatase 135 H (46-116) U/L Total Protein 6.7 (6.4-8.2) g/dL Albumin 3.4 (3.4-5.0) g/dL Globulin 3.3 (2.6-4.0) g/dL Albumin/Globulin Ratio 1.0 (0.9-1.6) Urine Color Urine Appearance Urine pH (5.0-8.0) Ur Specific [place] (1.001-1.035) Urine Protein (NEGATIVE) mg/dL Urine Glucose (UA) (NEGATIVE) mg/dL Urine Ketones (NEGATIVE) mg/dL Urine Occult Blood (NEGATIVE) Urine Nitrite (NEGATIVE) Urine Bilirubin (NEGATIVE) Urine Urobilinogen (<2.0) EU/dL Ur Leukocyte Esterase (NEGATIVE) Urine Opiates Screen (NEGATIVE) Ur Oxycodone Screen (NEGATIVE) Urine Methadone Screen (NEGATIVE) Ur Barbiturates Screen (NEGATIVE) Ur Phencyclidine Scrn (NEGATIVE) Ur Amphetamine Screen (NEGATIVE) U Methamphetamines Scrn (NEGATIVE) U Benzodiazepines Scrn (NEGATIVE) U Cocaine Metab Screen (NEGATIVE) U Marijuana (THC) Screen (NEGATIVE) Frankie Results Last 24 Hours: Microbiology 02/28/20 11:14 Aerobic Blood Culture - Preliminary Blood - Venous - Lab Draw NO GROWTH AFTER 1 DAY Anaerobic Blood Culture - Preliminary NO GROWTH AFTER 1 DAY 02/28/20 10:33 Aerobic Blood Culture - Preliminary Blood - Venous NO GROWTH AFTER 1 DAY Anaerobic Blood Culture - Preliminary NO GROWTH AFTER 1 DAY 02/28/20 15:35 Group A Streptococcus Rapid Screen - Final Throat NEGATIVE STREP A SCREEN REFERENCE RANGE: NEGATIVE Med Orders - Current: Current Medications Benzocaine/Menthol (Cepacol Sore Throat) 1 lozenge MUCMEM Q2H PRN PRN Reason: Sore Throat Last Admin: 02/29/20 00:43 Dose: 1 lozenge Documented by: Folic Acid (Folic Acid) 1 mg SUBCUT DAILY [facility] Last Admin: 02/29/20 09:38 Dose: 1 mg Documented by: Thiamine HCl 100 mg/ Sodium (Chloride) 101 mls @ 202 mls/hr IV DAILY [facility] Last Admin: 02/29/20 09:30 Dose: 202 mls/hr Documented by: Pantoprazole Sodium 40 mg/ (Sodium Chloride) 10 mls @ 300 mls/hr IV Q24H [facility] Last Admin: 02/28/20 17:27 Dose: 300 mls/hr Documented by: Lorazepam (Ativan) 0 mg IVPUSH Q2H PRN; Protocol PRN Reason: CIWAA Last Admin: 02/29/20 09:20 Dose: 2 mg Documented by: Ondansetron HCl (Zofran) 4 mg IVPUSH Q4H PRN PRN Reason: Nausea Sodium Chloride (Saline Flush) 10 ml FLUSH ASDIRECTED PRN PRN Reason: Keep Vein Open Last Admin: 02/28/20 10:19 Dose: 10 ml Documented by: Sodium Chloride (Saline Flush) 2.5 ml FLUSH ASDIRECTED PRN PRN Reason: Keep Vein Open Last Admin: 02/28/20 10:19 Dose: 2.5 ml Documented by: Discontinued Medications Lactated Ringer's (Ringers, Lactated) 1,000 mls @ 999 mls/hr IV .BOLUS ONE Stop: 02/28/20 11:08 Last Admin: 02/28/20 10:17 Dose: 999 mls/hr Documented by: Multivitamins/Minerals 10 ml/Thiamine HCl 100 mg/ Folic Acid 1 mg/ Sodium Chloride 1,011.2 mls @ 999 mls/hr IV ONETIME ONE Stop: 02/28/20 11:10 Last Admin: 02/28/20 10:36 Dose: 999 mls/hr Documented by: Sodium Chloride (Normal Saline) 1,000 mls @ 125 mls/hr IV Q8HR [facility] Last Admin: 02/28/20 15:24 Dose: 125 mls/hr Documented by: Lorazepam (Ativan) 2 mg IVPUSH ONETIME ONE Stop: 02/28/20 10:09 Last Admin: 02/28/20 10:18 Dose: 2 mg Documented by: Ondansetron HCl (Zofran) 4 mg IVPUSH ONETIME ONE Stop: 02/28/20 10:09 Last Admin: 02/28/20 10:20 Dose: 4 mg Documented by: Potassium Chloride (Klor-Con M20) 40 meq PO ONETIME ONE Stop: 02/28/20 14:33 Last Admin: 02/28/20 15:27 Dose: 40 meq Documented by: - Exam General: Alert, Oriented, Cooperative, No Acute Distress Lungs: Clear to Auscultation, Normal Respiratory Effort Cardiovascular: Regular Rate, Regular Rhythm GI/Abdominal Exam: Normal Bowel Sounds, Soft, Non-Tender Extremities: Normal Inspection, Normal Range of Motion, Non-Tender, No Pedal Edema Neurological: No New Focal Deficit Psy/Mental Status: Anxious, Agitated Sepsis Event Note - Evaluation Sepsis Screening Result: Sepsis Risk - Focused Exam Vital Signs: Vital Signs Temp Resp BP Pulse Ox 02/29/20 10:00 14 136/61 92 L 02/29/20 09:00 21 H 139/70 92 L 02/29/20 08:00 17 142/76 H 93 L 02/29/20 07:00 15 96 02/29/20 06:00 18 110/66 98 02/29/20 05:00 20 112/65 98 02/29/20 04:00 98.2 F 17 125/62 97 02/29/20 03:00 16 110/66 98 02/29/20 02:00 16 124/71 98 02/29/20 01:00 18 120/71 98 02/29/20 00:00 98.2 F 17 125/78 98 Date Exam was Performed: 02/29/20 Time Exam was Performed: 11:50 - Problem List & Annotations (1) Transaminitis SNOMED Code(s): 702037618, 869186700 Code(s): R74.0 - NONSPEC ELEV OF LEVELS OF TRANSAMNS & LACTIC ACID DEHYDRGNSE Status: Acute Current Visit: Yes (2) Alcohol withdrawal delirium SNOMED Code(s): 3606995 Code(s): F10.231 - ALCOHOL DEPENDENCE WITH WITHDRAWAL DELIRIUM Status: Acute Current Visit: No (3) Hyponatremia SNOMED Code(s): 78663602 Code(s): E87.1 - HYPO-OSMOLALITY AND HYPONATREMIA Status: Acute Current Visit: No - Problem List Review Problem List Initiated/Reviewed/Updated: Yes - My Orders Last 24 Hours: My Active Orders 02/28/20 Lunch Regular Diet [DIET] 02/28/20 14:22 Up With Assistance [RC] ASDIRECTED LORazepam [Ativan] See Protocol IVPUSH Q2H PRN Ondansetron [Zofran] 4 mg IVPUSH Q4H PRN Resuscitation Status Routine 02/28/20 14:23 Cardiac Monitoring [RC] Q8H Intake and Output [RC] Q12H Oxygen Therapy [RC] PRN VTE/DVT Education [RC] PER UNIT ROUTINE Vital Signs [RC] Q4H 02/28/20 15:35 CULTURE STREP A CONFIRMATION [RM] Urgent STREP SCRN A RAPID W CULT CONF [RM] Urgent 02/28/20 15:45 Benzocaine/Cetylpyrd/Menthol [Cepacol Sore Throat] 1 lozenge MUCMEM Q2H PRN 02/28/20 16:00 Pantoprazole [ProTONIX IV] 40 mg Sodium Chloride 0.9% [Normal Saline] 10 ml IV Q24H 02/29/20 05:15 HEPATITIS PANEL (4) [REF] AM 02/29/20 09:00 Folic Acid 1 mg SUBCUT DAILY Thiamine [Vitamin B-1] 100 mg Sodium Chloride 0.9% [Normal Saline] 100 ml IV DAILY 02/29/20 10:22 Transfer Patient (Change bed) [ADT] Routine - Plan Plan:: 55 yo male admitted for ETOH withdrawal and hyponatremia. 1.Alcohol withdrawal: - Continue CIWAA protocol with ativan prn, - Continue thiamine and folic acid, will switch to PO - Had some anxiety this morning speaking with MiSiedo, received Ativan. 2. Hyponatremia: - Improved today, Will continue to monitor 3. Leukocytosis and elevated lactic: - Resolved. likely due to dehydration. Lactic acid has normalized, does not appear septic. 4. Mild transaminitis: - likely due to ETOH abuse, - hepatitis panel pending and U/S ordered. VTE prophylaxis: SCDs Dispo: 1-2 days, transfer to [facility] floor
[2020-02-29] MEDS: Pantoprazole 40 MG in Sodium Chloride 0.9% 10 ML IV SCH (15:54)
[2020-02-29] MEDS: LORazepam 1 MG Tab PO PRN (23:15)
[2020-03-01 06:07] LABS: BLOOD UREA NITROGEN,BUN 24 mg/dL (7.0-18.0); CARBON DIOXIDE,CO2 26.8 mmol/L (21.0-32.0); CHLORIDE,CL 105 mmol/L (98-107); GLUCOSE RANDOM 99 mg/dL (74-106); POTASSIUM,K 4.1 mmol/L (3.5-5.1); SODIUM,NA 140 mmol/L (136-148)
[2020-03-01] MEDS: LORazepam 1 MG Tab PO PRN ×2 (06:44→11:05)
--- NOTE | 2020-03-01 07:04 | PCM.DCSUM1 ---
Discharge Summary - Discharge Data Discharge Date: 03/01/20 Discharge Disposition: Home, Self-Care 01 Condition: Fair - Referral to Home Health Primary Care Physician: PCP None - Discharge Plan *PRESCRIPTION DRUG MONITORING PROGRAM REVIEWED*: Not Applicable *COPY OF PRESCRIPTION DRUG MONITORING REPORT IN PATIENT JHONNY: Not Applicable Home Medications: Home Meds . [Unable to Verify Home Med List] 02/28/20 [History] Patient Handouts: Alcohol Intoxication, [id number] - Patient Data Vitals - Most Recent: Last Vital Signs Temp 36.4 C 03/01/20 04:00 Pulse 100 03/01/20 04:00 Resp 18 03/01/20 04:00 BP 138/81 03/01/20 04:00 Pulse Ox 96 03/01/20 04:00 Weight - Most Recent: 72.575 kg I&O - Last 24 hours: Intake & Output 02/29/20 03/01/20 03/01/20 22:59 06:59 14:59 Intake Total 490 1320 Output Total 450 1200 Balance 40 120 Lab Results - Last 24 hrs: Laboratory Results - last 24 hr 03/01/20 Range/Units 05:38 Sodium 140 (136-148) mmol/L Potassium 4.1 (3.5-5.1) mmol/L Chloride 105 (98-107) mmol/L Carbon Dioxide 26.8 (21.0-32.0) mmol/L BUN 24 H (7.0-18.0) mg/dL Creatinine 1.1 (0.8-1.3) mg/dL Est Cr Clr Drug Dosing TNP Estimated GFR (MDRD) > 60.0 ml/min Glucose 99 (74-106) mg/dL Calcium 8.3 L (8.5-10.1) mg/dL Total Bilirubin 0.3 (0.2-1.0) mg/dL AST 65 H (15-37) IU/L ALT 118 H (14-63) IU/L Alkaline Phosphatase 173 H (46-116) U/L Total Protein 7.0 (6.4-8.2) g/dL Albumin 3.4 (3.4-5.0) g/dL Globulin 3.6 (2.6-4.0) g/dL Albumin/Globulin Ratio 0.9 (0.9-1.6) PENNIE Results - Last 24 hrs: Microbiology 02/28/20 11:14 Aerobic Blood Culture - Preliminary Blood - Venous - Lab Draw NO GROWTH AFTER 1 DAY Anaerobic Blood Culture - Preliminary NO GROWTH AFTER 1 DAY 02/28/20 10:33 Aerobic Blood Culture - Preliminary Blood - Venous NO GROWTH AFTER 1 DAY Anaerobic Blood Culture - Preliminary NO GROWTH AFTER 1 DAY Med Orders - Current: Current Medications Benzocaine/Menthol (Cepacol Sore Throat) 1 lozenge MUCMEM Q2H PRN PRN Reason: Sore Throat Last Admin: 02/29/20 22:58 Dose: 1 lozenge Documented by: Folic Acid (Folic Acid) 1 mg PO DAILY [facility] Pantoprazole Sodium 40 mg/ (Sodium Chloride) 10 mls @ 300 mls/hr IV Q24H [facility] Last Admin: 02/29/20 15:54 Dose: 300 mls/hr Documented by: Lorazepam (Ativan) 0 mg IVPUSH Q2H PRN; Protocol PRN Reason: CIWAA Last Admin: 02/29/20 09:20 Dose: 2 mg Documented by: Lorazepam (Ativan) 0 mg PO Q4H PRN; Protocol PRN Reason: CIWAA Last Admin: 03/01/20 06:44 Dose: 1 mg Documented by: Ondansetron HCl (Zofran) 4 mg IVPUSH Q4H PRN PRN Reason: Nausea Sodium Chloride (Saline Flush) 10 ml FLUSH ASDIRECTED PRN PRN Reason: Keep Vein Open Last Admin: 02/28/20 10:19 Dose: 10 ml Documented by: Sodium Chloride (Saline Flush) 2.5 ml FLUSH ASDIRECTED PRN PRN Reason: Keep Vein Open Last Admin: 02/28/20 10:19 Dose: 2.5 ml Documented by: Thiamine HCl (Vitamin B-1) 100 mg PO BEDTIME [facility] Discontinued Medications Folic Acid (Folic Acid) 1 mg SUBCUT DAILY [facility] Last Admin: 02/29/20 09:38 Dose: 1 mg Documented by: Lactated Ringer's (Ringers, Lactated) 1,000 mls @ 999 mls/hr IV .BOLUS ONE Stop: 02/28/20 11:08 Last Admin: 02/28/20 10:17 Dose: 999 mls/hr Documented by: Multivitamins/Minerals 10 ml/Thiamine HCl 100 mg/ Folic Acid 1 mg/ Sodium Chloride 1,011.2 mls @ 999 mls/hr IV ONETIME ONE Stop: 02/28/20 11:10 Last Admin: 02/28/20 10:36 Dose: 999 mls/hr Documented by: Sodium Chloride (Normal Saline) 1,000 mls @ 125 mls/hr IV Q8HR [facility] Last Admin: 02/28/20 15:24 Dose: 125 mls/hr Documented by: Thiamine HCl 100 mg/ Sodium (Chloride) 101 mls @ 202 mls/hr IV DAILY [facility] Last Admin: 02/29/20 09:30 Dose: 202 mls/hr Documented by: Lorazepam (Ativan) 2 mg IVPUSH ONETIME ONE Stop: 02/28/20 10:09 Last Admin: 02/28/20 10:18 Dose: 2 mg Documented by: Ondansetron HCl (Zofran) 4 mg IVPUSH ONETIME ONE Stop: 02/28/20 10:09 Last Admin: 02/28/20 10:20 Dose: 4 mg Documented by: Potassium Chloride (Klor-Con M20) 40 meq PO ONETIME ONE Stop: 02/28/20 14:33 Last Admin: 02/28/20 15:27 Dose: 40 meq Documented by:
[2020-03-01] MEDS ORDERED: Folic Acid 1 MG Tab PO SCH (09:00)
[2020-03-01] MEDS ORDERED: Thiamine 100 MG Tab PO SCH (21:00)
== END 2020-03-01 11:37 | disposition home or self-care (01) | DRG 897 ==
LOC: EDBD 10:03 → MW.ED 10:03 → MW.ICU 14:19 → MW.MS 02-29 16:17
PROVIDERS: ADMIT Internal Medicine; ATTEND Internal Medicine
DX: F10.231 Alcohol dependence with withdrawal delirium (principal); E87.1 Hypo-osmolality and hyponatremia; R74.8 Abnormal levels of other serum enzymes; D72.829 Elevated white blood cell count, unspecified; Z20.828 Contact with and (suspected) exposure to other viral communicable diseases
CPT/HCPCS: 36415; 71045; 71045-26; 76705; 76705-26; 80048; 80053; 80074; 80305-QW; 80307; 81003; 82550; 83605; 83735; 84100; 84484; 85025; 85610; 87040; 87081; 87880-QW; 93005; 96374; 96375; 99285-25; A9270-GY; C9113; J2060; J2405; J3411; J7030; J7050; J7120; U0002